=== PATIENT | female | born 1965 | race Caucasian/White ===

== ENCOUNTER 2023-03-28 12:26 | Outpatient (CLI) | payer BC, SELFPAY ==
[2023-03-28 13:17] LABS: Basophils Absolute Auto 0.1 K/mm3 (0.0-0.1); Basophils Percent Auto 0.9 % (0.2-1.2); Eosinophils Absolute Auto 0.1 K/mm3 (0-0.3); Eosinophils Percent Auto 1.6 % (0-4.4); Hematocrit 43.8 % (37.0-47.0); Hemoglobin 14.2 g/dL (12.0-15.0); Immature Granulocyte Absolute 0.01 K/mm3 (0.00-0.031); Immature Granulocyte Percent A 0.1 % (0-0.5); Lymphocytes Absolute Auto 2.42 K/mm3 (0.9-3.2); Lymphocytes Percent Auto 32.5 % (18.3-44.2); Mean Corpuscular HGB Conc 32.4 g/dl (32-36); Mean Corpuscular Hemoglobin 28.9 pg (26-34); Mean Corpuscular Volume 89.2 fl (80-100); Mean Platelet Volume 9.9 fl (7.4-10.4); Monocytes Absolute Auto 0.5 K/mm3 (0.1-0.6); Monocytes Percent Auto 7.1 % (2.6-8.5); Neutrophils Absolute Auto 4.3 K/mm3 (1.3-6.7); Neutrophils Percent Auto 57.8 % (45.5-73.1); Platelet Count Result 242 k/mm3 (150-375); Red Blood Count 4.91 M/mm3 (4.2-5.4); Red Cell Distribution Width 12.9 % (11.5-14.5); White Blood Count 7.4 K/mm3 (4.5-10.0)
== END 2023-03-28 12:27 | disposition home or self-care (01) ==
LOC: ANHLAB 12:30
PROVIDERS: Visit Provider Obstetrics & Gynecology Gynecologic Oncology
DX: Z01.818 Encounter for other preprocedural examination (principal)
CPT/HCPCS: 36415; 85025; 86850; 86900; 86901

== ENCOUNTER 2023-03-28 13:04 | Outpatient (CLI) | payer BC, SELFPAY ==
--- NOTE | 2023-03-28 14:02 | ECG_ITS ---
Measurements Intervals [place] Rate: 71 P: 20 CO: 185 QRS: -1 QRSD: 85 T: 20 QT: 371 QTc: 404 Interpretive Statements SINUS RHYTHM LOW QRS VOLTAGE IN PRECORDIAL LEADS [QRS DEFLECTION < 1.0 mV IN CHEST LEADS] NO PREVIOUS ECG AVAILABLE FOR COMPARISON Electronically Signed On 03-28-2023 14:49:29 CALL CENTER TEAM LEADER by Kyara Taylor M.D.
[2023-03-28 14:32] LABS: Alanine Aminotransferase 30 U/L (6-35); Albumin Level 4.3 g/dL (3.5-5.1); Alkaline Phosphatase 80 U/L (38-126); Anion Gap 6 mmol/L (8-16); Aspartate Amino Transferase 26 U/L (14-36); Bilirubin,Total 0.4 mg/dL (0.2-1.3); Blood Urea Nitrogen 20 mg/dL (7-17); Calcium 9.6 mg/dL (8.4-10.2); Carbon Dioxide 30 mmol/L (22-30); Chloride 102 mmol/L (98-107); Estimated Glomerular Filt Rate > 60; Glucose 120 mg/dL (65-110); Potassium 3.9 mmol/L (3.4-5.0); Sodium 138 mmol/L (137-145)
[2023-03-28 14:34] LABS: INR 0.9; Prothrombin Time 12.7 Seconds (11.1-14.7)
[2023-03-28 14:35] LABS: Partial Thromboplastin Time 26.6 SECONDS (22.3-36.8)
== END 2023-03-28 13:05 | disposition home or self-care (01) ==
LOC: ANHSURGERY 13:10
PROVIDERS: Visit Provider Urology
DX: Z01.818 Encounter for other preprocedural examination (principal); R32 Unspecified urinary incontinence; R93.1 Abnormal findings on diagnostic imaging of heart and coronary circulation
CPT/HCPCS: 36415; 80053; 85025; 85610; 85730; 86850; 86900; 86901; 93005

== ENCOUNTER 2023-04-03 00:54 | Day surgery (SDC) | payer BC, SELFPAY ==
--- NOTE | 2023-03-28 13:24 | PC.NURSE ---
PRE-OP INSTRUCTIONS, PLEASE READ CAREFULLY Report to the Outpatient Waiting Room, entrance under the green pavilion located off [facility], at time _0930_ on date _04/03/23_. Planned Procedure Time: _1130_. PACK A SMALL OVERNIGHT BAG AND LEAVE IN THE CAR Time changes happen often and if your time is changed the preop area will call you the afternoon before. - You and your visitor will be asked to self-screen and do not enter if you have any COVID symptoms. - A mask is optional within the hospital at this time. -VISITING HOURS 8AM-8PM Patients may have clear liquids (water, carbonated beverages, clear teas, apple juice) until 3 hours prior to surgery (0830 AM) with a maximum of 20 ounces. - No food from midnight until time of surgery Take the following medications with a SIP of water the morning of surgery: __NONE__ DO NOT STOP ANY OF YOUR OTHER PRESCRIPTION MEDICATIONS PRIOR TO SURGERY ?EXCEPT THE FOLLOWING Medications to discontinue per PATIENT INSTRUCTED BY SURGEON - _ALL VITAMINS/SUPPLEMENTS 7 DAYS PRIOR TO SURGERY, STATES LAST DOSE WAS 03/26/23_ Please no make-up, nail greenlandic, hairspray, perfume, deodorant, or body powder the day of surgery. No jewelry (including any body piercings) or valuables the day of surgery, leave them at home. Please take a shower or bath the night before, or the morning of, surgery with an antibacterial soap. Wear comfortable, loose fitting clothing. - Jewelry must be removed prior to entering the operating room. Rings and piercings that are not removed may be cut off. - The hospital will not accept responsibility for valuables. - Please leave all valuables, including medications, at home the day of surgery. If you are going home after surgery, a licensed furniture mover driver must drive you home. - NO public transportation without another adult if you receive anesthesia. - We recommend that an adult stay with you for 24 hours following discharge. - We also recommend that you do not drive, make important decision, drink alcoholic beverages, or take any drugs that were not prescribed by your health care provider for at least 24 hours after your discharge time. Follow any additional instructions given to you from your surgeon. If you or anyone in your household have experienced Covid symptoms in the past week, please notify your surgeon or the nurse liaison at the phone number below for possible testing. Instructions given to _PATIENT_and asked if any additional questions and then verbalized understanding. Patient advised to call surgeon office or pre surgery nurse liaison [phone] if any additional questions.
[2023-03-28 13:43] VITALS: BP 136/72; PULSE 74; RESP 18; TEMP 37.3; O2SAT 100; BMI 29.5
--- NOTE | 2023-04-02 18:43 | PM.IMHP ---
H&P: HPI History of Present Illness Date/Time: 04/02/23 18:43 Chief Complaint: POP/ZE Narrative: 57 yo with uterine prolaspe and ZE Review of Systems Review of Systems: All systems reviewed & are unremarkable except as noted in HPI and below PMFSH Social History Social History Smoking status: Never smoker Second hand tobacco smoke exposure: No Alcohol intake: never Substance use: never Substance use type: does not use Living arrangements: with family Spiritual care concerns: No Meds Home Medications and Allergies Home Medications Medication Instructions Recorded Confirmed Type Probiotic 1 tab-cap DAILY 03/28/23 03/28/23 History coenzyme Q10 100 mg capsule 100 mg PO DAILY 03/28/23 03/28/23 History (CoQ-10) lovastatin 40 mg tablet 40 mg DAILY 03/28/23 03/28/23 History multivitamin 1 tablet PO DAILY 03/28/23 03/28/23 History Allergies Allergy/AdvReac Type Severity Reaction Status Date / Time codeine AdvReac Severe N/V/GI Verified 03/28/23 13:38 UPSET Exam Narrative: NAD normal breathing cA+O x3 urethral mobility anterior wall +3, apex +3 Assessment and Plan Assessment and plan (1) Uterine prolapse: Code(s): N81.4 - Uterovaginal prolapse, unspecified Status: Acute (2) ZE (stress urinary incontinence, female): Code(s): N39.3 - Stress incontinence (female) (male) Status: Acute Plan robotic Sacral colpopexy, urethral sling. Risks, benifitis, alternative documented in office chart
[2023-04-03] VITALS (8 sets, daily range): BP systolic 101–153; BP diastolic 61–70; PULSE 55–85; RESP 12–18; TEMP 35.8–36.8; O2SAT 94–100
--- NOTE | 2023-04-03 04:32 | WPDHPUPDATE1 ---
History and Physical Update Update Date/Time: 04/03/23 04:32 History and Physical has been reviewed, including an updated exam of the patient. There are NO changes in the patient's condition. Risks, benefits, and alternatives have been discussed and questions answered. Patient agrees to proceed with procedure.
[2023-04-03] MEDS: LACTATED RINGERS 1,000 ML 30 ML IV CONT ×2 (10:05→15:22)
[2023-04-03] MEDS: ACETAMINOPHEN 500 MG TABLET 1000 MG PO (10:07)
[2023-04-03] MEDS: GABAPENTIN 300 MG CAPSULE PO (10:07)
--- NOTE | 2023-04-03 11:44 | P.HP_ITS ---
H&P: HPI History of Present Illness Date/Time: 04/03/23 11:44 Chief Complaint: I'm here for a hysterectomy and prolapse surgery Narrative: Thi presents with uterovaginal prolapse desiring supracervical hyste rectomy and sacral colpopexy. Review of Systems Review of Systems: All systems reviewed & are unremarkable except as noted in HPI and below PMFSH Social History Social History Smoking status: Never smoker Second hand tobacco smoke exposure: No Alcohol intake: never Substance use: never Substance use type: does not use Living arrangements: with family Spiritual care concerns: No Meds Home Medications and Allergies Home Medications Medication Instructions Recorded Confirmed Type Probiotic 1 tab-cap DAILY 03/28/23 04/03/23 History coenzyme Q10 100 mg capsule 100 mg PO DAILY 03/28/23 04/03/23 History (CoQ-10) lovastatin 40 mg tablet 40 mg DAILY 03/28/23 04/03/23 History multivitamin 1 tablet PO DAILY 03/28/23 04/03/23 History Allergies Allergy/AdvReac Type Severity Reaction Status Date / Time codeine AdvReac Severe N/V/GI Verified 03/28/23 13:38 UPSET Vital Signs Vital Signs - 24 hr 04/03/23 09:39 Temperature 36.6 C Pulse Rate 71 Respiratory Rate 16 Blood Pressure 153/70 H Pulse Oximetry 100 Oxygen Delivery Room Air Exam Const: General: comfortable and no acute distress Eyes: General: appearance normal, both eyes and all related structures Resp: Effort & Inspection: normal respiratory effort Auscultation: clear to auscultation bilaterally Cardio: Rate: regular rate Rhythm: regular rhythm GI: GI Palp: Yes Soft to palpation Auscultation: normal bowel sounds Skin: General skin exam: normal color and no rashes or lesions noted Assessment and Plan Assessment and plan (1) Uterine prolapse: Code(s): N81.4 - Uterovaginal prolapse, unspecified Status: Acute Plan Robotic assisted supracervical hysterectomy, bilateral salpingo-oophorectomy
--- NOTE | 2023-04-03 11:44 | WPDHPUPDATE1 ---
History and Physical Update Update Date/Time: 04/03/23 11:44 History and Physical has been reviewed, including an updated exam of the patient. There are NO changes in the patient's condition. Risks, benefits, and alternatives have been discussed and questions answered. Patient agrees to proceed with procedure.
--- NOTE | 2023-04-03 11:49 | P.PNAN_ITS ---
Anes - Initial Pre Proc Eval Procedure: Operation Date: 04/03/23 11:30 Proposed Procedures p Robotic Sacrocolpopexy - Srinivasan Ren MD s Urethral Sling - Srinivasan Ren MD s Robotic Assisted Supracervical Hysterectomy, Bilateral Salpingo-oophorectomy - Mary AdrianAnthony Stanley DO Date/Time: 04/03/23 11:49 Surgeon: Srinivasan Ren MD Pre Op Diagnosis: complete Uterine prolapse, stress incontinence Patient Data Age: 57 Gender: F Height: 1.63 m Weight: 77 kg Last Vital Signs Temp 97.9 F 04/03/23 09:39 Pulse 71 04/03/23 09:39 Resp 16 04/03/23 09:39 BP 153/70 H 04/03/23 09:39 Pulse Ox 100 04/03/23 09:39 O2 Del Method Room Air 04/03/23 09:39 Allergies Allergy/AdvReac Type Severity Reaction Status Date / Time codeine AdvReac Severe N/V/GI Verified 03/28/23 13:38 UPSET Home Medications Medication Instructions Recorded Confirmed Type Probiotic 1 tab-cap DAILY 03/28/23 04/03/23 History coenzyme Q10 100 mg capsule 100 mg PO DAILY 03/28/23 04/03/23 History (CoQ-10) lovastatin 40 mg tablet 40 mg DAILY 03/28/23 04/03/23 History multivitamin 1 tablet PO DAILY 03/28/23 04/03/23 History Patient hx anesthesia problems: post op nausea/vomiting Family hx anesthesia problems: none Results Review: All pre-operative results and documents have been reviewed as part of the pre-operative evaluation. [facility] Social History Social History Smoking status: Never smoker Second hand tobacco smoke exposure: No Alcohol intake: never Substance use: never Substance use type: does not use Living arrangements: with family Spiritual care concerns: No Anes - Eval Final PreProcedure Day of Procedure 04/03/23 11:49 Patient weight: normal Heart: regular rate and rhythm Lungs: clear to auscultation Airway: Mallampati scale class II Neurological: alert and oriented Last oral intake: >/= 8 hours ASA classification: II Emergent: no Anesthetic plan: proceed Anesthesia type and monitoring: general ETT and standard monitoring Results Review: All pre-operative results and documents have been reviewed as part of the pre- operative evaluation. Informed Consent: The patient's anesthetic plan and its attendant risks and benefits were discussed with the patient/family/POA. Questions were solicited and answers provided to the satisfaction of the patient/family/POA.
[2023-04-03] MEDS: SCOPOLAMINE 1 MG PATCH 1 PATCH TRANSDERM (11:52)
[2023-04-03] MEDS: ceFAZolin 2 GM/D5W 50 ML 2 GM/50 ML BAG IVPB (12:17)
[2023-04-03] MEDS: metroNIDAZOLE 500 MG/ISO 100ML 500 MG/100 ML BAG 100 MG IVPB ×2 (12:22→17:10)
[2023-04-03] MEDS: BUPIVACAINE/EPINEPHRINE 0.5% 50 ML VIAL 40 ML INFILTRATE (13:12)
--- NOTE | 2023-04-03 13:27 | P.OP_ITS ---
Procedure Note - Detailed Date of Procedure 04/03/23 Pre-op Diagnosis complete Uterine prolapse, stress incontinence Post-op Diagnosis Same Procedure Performed Robotic assisted supracervical hysterectomy, bilateral salpingo-oophorectomy Surgeon Mary Stanley DO Founder And Chief Technical Officer Hanane Anesthesia General Indications Uterovaginal prolapse and stress incontinence Findings Incomplete uterovaginal prolapse. Otherwise normal vulva. Internally, the bowel was normal. The uterus was wide but short. The left uterine vessels were remarkably dilated. The ovaries and remaining portions of the tubes were normal. Description of Procedure The patient was taken to the operating room where she was placed under general anesthesia. She was prepped and draped in the normal sterile fashion in a dorsal lithotomy position. Preoperative antibiotics were given. A time-out was performed. A sponge stick was placed in the vagina. Please see Dr. Knox operative note for further details details on docking of the robot. Once the robot was docked, inspection of the pelvis revealed the above-mentioned findings. The left sidewall peritoneum over the psoas muscle was opened and a defect was made. The IP ligament was skeletonized with care to identify the course of the ureter, which was very low and well away from the dissection field. The IP was then skeletonized and was cauterized and transected the dissection was carried up through the peritoneum and the round ligament was cauterized and transected. The 2 leaves of the broad ligament were opened and the uterine vessels were skeletonized. Of note, the left uterine vessels, especially the vein, were dramatically dilated. The vessel sealer was used to cauterize and transect this. A bladder flap was created. The procedure was repeated in identical fashion on the right-hand side after ensuring the ureter was well out of the way. Dissection was then carried down to the uterine vessels which were cauterized and transected. Minimal bladder flap dissection was performed. I then donned gloves and turned to the bedside, I palpated with the end of the cervix was. I returned to the robot and transected across the lower uterine segment leaving the cervix intact. Dr. Ren then presented to the OR and placed the specimen in a bag. Please see his note for further details. When I left the OR the patient was in stable condition there had been about 50 ml in blood loss. The family was updated. Estimated Blood Loss 50 Drains No Packing No Pathology Yes Complications No immediate complications Condition Stable Disposition PACU
--- NOTE | 2023-04-03 15:19 | W.PM.PROC2 ---
Procedure Note - Detailed Date of Procedure 04/03/23 Pre-op Diagnosis complete Uterine prolapse, stress incontinence Post-op Diagnosis Same Procedure Performed Robotic assisted laparoscopic sacral colpopexy Urethral sling Cystoscopy Surgeon Srinivasan Ren MD Anesthesia General Indications A woman with uterine prolapse as well as stress incontinence. She desires surgical correction. She is here for the above. She understands risks of bleeding, infection, diskitis, damage to surrounding organs, bowel injury, bowel obstruction, mesh related complications including exposure and extrusion, postoperative voiding dysfunction including incontinence and retention, need for ancillary procedures, dyspareunia, recurrence of prolapse, and other perioperative intraoperative postoperative complications. She agrees to proceed. Findings See below Description of Procedure She was correctly identified. Informed consent obtained. She from the operating room. She was given general anesthesia. She was given appropriate perioperative antibiotics. She was placed a low lithotomy position. Pressure points were padded. A time-out performed. I marked out the skin 3 fingerbreadths cephalad to the umbilicus. I anesthetized the skin. I incised the skin. I dissected down to the fascia. I grasped the fascia with Yvon clamps. I entered the fascia sharply in a Collado type technique. I placed sutures for later fascial closure. I placed a midline trocar. I examined the abdomen. There is no sign of any injury. Under direct vision I placed 2 additional trocars in the right upper quadrant and 2 additional trocars the left upper quadrant. She was placed in steep Trendelenburg. The robot was docked. Her plastics scientist completed their portion of the procedure. Please see that operative report for details. I then sat at the console. I examined the cervix. There was some fibroids on the cervix. These were excised and sent as a separate specimen. I did not enter the vagina. The Sizer in the vagina created plane on the anterior and posterior vaginal wall. I took great care not to injure the vagina, bladder, or rectum. I introduced the mesh into the abdomen. I sewed the anterior leaflet of mesh on the anterior vaginal wall. I sewed the posterior leaflet of mesh on the posterior vaginal wall. This was done with several sutures of 2 0 [place]Turner. I reflected the colon laterally. I opened the posterior peritoneum over the sacral promontory. I carried this into the cul-de-sac. I freed up the edges for later retroperitonealization. I located the anterior longitudinal ligament the sacrum. I cleaned off all fatty tissues. I then tensioned my mesh appropriately. I did a vaginal exam the bedside. I assured prolapse reduction without undue tension. I then sewed the proximal leaflet of mesh onto the anterior longitudinal ligament of the sacrum with 4 sutures of 2 0 [place]Turner. I then used a 2 0 Monocryl to completely and meticulously retroperitonealized all mesh. I allowed the colon to go back to its normal anatomic location. There is no sign of any impingement. The specimen was then removed. All ports removed. Fascia was tied down. Skin was closed with Monocryl and surgical glue. She was repositioned and prepped for urethral sling. I marked out the inner thigh incisions. I anesthetized the skin and made the incisions. I then anesthetized the anterior vaginal wall at the mid urethra. I made a 1 cm incision. I dissected out laterally taking great care not to injure the refilled vaginal wall. I passed the helical trocars. I did this 1st on the left and then on the right. This was done from the thigh incision towards the vaginal incision. Sling was connected to the trocars and brought out the thigh incision. I tensioned the sling appropriately. I cut and the plastic sheaths. I closed the incision with 2 0 Vicryl. I then performed cystoscopy. There was no tumors or
--- NOTE | 2023-04-03 16:35 | PC.NURSE ---
This patient, Tracie Sidhu, was received from PACU on 04/03/23 at 1635. Patient/family oriented to unit policies and routines
[2023-04-03] MEDS: KCL 20 MEQ/D5/0.45% SOD CHL 1,000 ML 100 ML IV CONT (17:09)
[2023-04-03] MEDS: KETOROLAC 15 MG/ML VIAL (*BKC) IV PUSH (17:22)
[2023-04-03] MEDS: ceFAZolin 1 GM/NS 50 ML 1 GM/50 ML BAG IVPB (20:36)
[2023-04-04] MEDS: metroNIDAZOLE 500 MG/ISO 100ML 500 MG/100 ML BAG 100 MG IVPB ×2 (01:14→09:26)
[2023-04-04 01:20] VITALS: BP 124/70; PULSE 73; RESP 16; TEMP 37.1; O2SAT 95
[2023-04-04] MEDS: ACETAMINOPHEN 325 MG TABLET 650 MG PO ×2 (05:44→09:46)
[2023-04-04 05:46] VITALS: BP 118/58; PULSE 77; RESP 16; RESP 18; TEMP 36.9; O2SAT 97
[2023-04-04] MEDS: ceFAZolin 1 GM/NS 50 ML 1 GM/50 ML BAG IVPB (07:13)
[2023-04-04 08:25] VITALS: BP 112/54; PULSE 65; RESP 18; TEMP 37.1; O2SAT 100
[2023-04-04] MEDS: DOCUSATE SODIUM 100 MG CAPSULE PO (09:25)
[2023-04-04] MEDS: LOVASTATIN 20 MG TABLET 40 MG PO (09:25)
[2023-04-04] MEDS: ENOXAPARIN 30 MG/0.3 ML SYRINGE SUB-Q (09:26)
--- NOTE | 2023-04-04 09:26 | PM.DS ---
DS: Admitting Diagnosis Discharge Date 04/04/23 Admitting Diagnosis Uterine prolapse DS: Discharge Diagnosis Discharge Diagnosis (1) Uterine prolapse: Code(s): N81.4 - Uterovaginal prolapse, unspecified Status: Acute (2) ZE (stress urinary incontinence, female): Code(s): N39.3 - Stress incontinence (female) (male) Status: Acute DS: Summary Hospital Course Hospital Course: Date of admission: 04/03/23 Date of discharge: 04/04/23 Tracie Sidhu is a 57 year old female with history of uterine prolapse and stress urinary incontinence. She presented to [facility] on 04/03/23 and underwent robotic assisted laparoscopic supracervical hysterectomy, bilateral salpingo-oophorectomy, robotic assisted laparoscopic sacral colpopexy, urethral sling, and cystoscopy. She tolerated the procedure well. Her pain was well controlled postoperatively. She was able to ambulate without difficulty. She had a danielson catheter placed postoperatively which was removed on 04/04/23 and she was able to void without difficulty. She was able to tolerate her diet. She had no nausea, vomiting, fevers, or chills. We reviewed postop instructions and medications and all questions were answered.? She will be discharged home. She has follow up scheduled with Dr. Stanley and Dr. Ren. Time Spent with Patient Time attestation: Total time spent providing and/or coordinating discharge services: Exam Narrative: General: Awake, alert, comfortable, no acute distress HEENT: Normocephalic, atraumatic, sclerae anicteric Respiratory: Normal respiratory effort, no accessory muscle use Abdomen: Nondistended, soft, nontender Skin: Normal coloration, warm and dry Neurologic: No focal neuro deficits noted Psychiatric: Appropriate mood and affect, judgment and insight intact DS: Data Data Completed and Pending Pending studies at discharge: Pending at discharge 04/03/23 13:26 Surgical [PTH] Routine Discharge Plan Discharge Patient Disposition: Home, Self-Care Discharge Instructions: Remove the Scopolamine patch that was placed behind your ear in 72 hours or less. Wash your hands after touching. Must void before discharge Call me is issues voiding before discharge No exercise for 6 weeks No intercourse for 6 weeks no lifting greater than 20 lb 6 weeks if she wants to stay overnight will orders for that as well Patient Instructions: Hysterectomy (DC) Stand Alone Forms: General Discharge Instructions Follow-up/Referrals: Srinivasan Ren MD [Physician] - (f/u 6 weeks) Discharge Medications: New docusate sodium [Colace] 100 mg capsule 100 mg PO BID Qty: 40 0RF hydrocodone-acetaminophen 5-325 mg tablet 1 tablet PO Q6H PRN (Reason: pain) Qty: 20 0RF Continued multivitamin Tablet 1 tablet PO DAILY lovastatin 40 mg tablet 40 mg DAILY coenzyme Q10 [CoQ-10] 100 mg Capsule 100 mg PO DAILY Probiotic 1 tab-cap DAILY
== END 2023-04-04 11:39 | disposition home or self-care (01) ==
LOC: ANHSURGERY 11:53 → ANHOB2 16:29
PROVIDERS: Obstetrics & Gynecology Gynecologic Oncology; Visit Provider Urology
PROC: (CPT 57425; principal; 2023-04-03 11:30)
PROC: (CPT 57288; 2023-04-03 11:30)
PROC: (CPT 58542; 2023-04-03 11:30)
DX: N81.3 Complete uterovaginal prolapse (principal); N39.3 Stress incontinence (female) (male); D25.0 Submucous leiomyoma of uterus; D25.1 Intramural leiomyoma of uterus; D25.2 Subserosal leiomyoma of uterus; N83.8 Other noninflammatory disorders of ovary, fallopian tube and broad ligament; N83.292 Other ovarian cyst, left side
CPT/HCPCS: 58542; 57288; 57425; S2900 ×2; 88307; A9270; C1771; C1781; J0690; J1100; J1170; J1596; J1650; J1836; J1885; J2250; J2405; J2704; J2710; J3010; J3480; J7030; J7120